=== PATIENT | female | born 1985 | race Caucasian/White ===

== ENCOUNTER 2019-05-01 20:51 | Emergency (ER) | payer BC ==
[~2019-05-01] VITALS: Ht 152.4 cm; Wt 55.0 kg
[~2019-05-01 20:51] MED LIST: MOTRIN800 MG/TAB PO; PRENATAL1 TAB OR
[2019-05-01 21:20] VITALS: BP 132/80
== END 2019-05-01 21:25 | disposition home or self-care (01) | DRG 918 ==
LOC: ED 20:51
DX: T63.301A Toxic effect of unspecified spider venom, accidental (unintentional), initial encounter (principal); Y92.481 Parking lot as the place of occurrence of the external cause